=== PATIENT | female | born 1980 | race Caucasian/White ===

== ENCOUNTER 2017-03-27 13:15 | Emergency (ER) | payer OTHER ==
[~2017-03-27] VITALS: Ht 162.6 cm; Wt 99.5 kg
[~2017-03-27 13:15] MED LIST: BACTRIM,SEPT1 TABLET PO; CLINDAMYCIN HC300 MG PO; DIABETA1.25 MG PO; DIFLUCAN150 MG PO; ENDOCET 5-3251 EACH PO; IBUPROFEN800 MG PO; MICRONASE1.25 MG PO; Motrin PO; PREFERA-OB P1 TABLET PO; Percocet 5/325,Endoc PO
[2017-03-27] MEDS ORDERED: TAPAZOLE10 MG PO (13:32)
[2017-03-27] MEDS ORDERED: PAXIL10 MG PO (13:32)
[2017-03-27 13:43] LABS: ADD MIUA? YES; BILIRUBIN NEGATIVE; BLOOD SMALL; COLOR AMBER ((YELLOW)); GLUCOSE (STRIP) NEGATIVE; KETONES NEGATIVE; LEUKOCYTES LARGE; NITRITE NEGATIVE; PROTEIN (STRIP) 100; UROBILINOGEN 0.2 MG/DL (0.2-1.0)
[2017-03-27 14:02] LABS: BACTERIA NONE SEEN /HPF; EPITHELIAL CELLS 1+ /HPF; HYALINE CASTS 0-5 /LPF; MUCUS 1+ /LPF; RED BLOOD CELLS 0-5 /HPF (0-5); UCUL ADDED? NO; WHITE BLOOD CELLS 0-5 /HPF (0-5)
[2017-03-27 14:25] LABS: HEMATOCRIT 39.3 % (36.0-46.0); MCH 28.8 PG (29.0-34.0); MCHC 33.8 G/DL (30.0-36.0); MCV 85.1 FL (83-99); MEAN PLAT.VOLUME 9.7 uM^3 (9.5-12.4); PLATELET COUNT 310 K/uL (156-360); RBC DIS.WIDTH-CV 12.7 % (11.8-14.6); RBC DIS.WIDTH-SD 38.9 % (39-53); RED BLOOD COUNT 4.62 M/uL (3.80-5.20)
[2017-03-27 14:35] LABS: CHLORIDE 111 mEq/L (99-109); SODIUM 141 mEq/L (136-147)
[2017-03-27 14:38] LABS: GLUCOSE 97 mg/dL (70-99)
[2017-03-27 14:39] LABS: ANION GAP 8 MEQ/L (2-14)
[2017-03-27 14:40] LABS: TOTAL BILIRUBIN 1.1 mg/dL (0.0-1.0)
[2017-03-27 14:41] LABS: ALKALINE PHOSPHATASE 105 IU/L (3-129); GFR ESTIMATE (CALCULATED) > 59 mL/min/
[2017-03-27 14:42] LABS: UREA NITROGEN (BUN) 13 mg/dL (9-23)
[2017-03-27 14:50] LABS: QUANTITATIVE HCG < 4.0 MIU/ML
[2017-03-27] MEDS ORDERED: MOTRIN800 MG PO (15:46)
[2017-03-27] MEDS ORDERED: KEFLEX500 MG PO (15:46)
[2017-03-27] MEDS ORDERED: ZOFRAN ODT4 MG PO (15:55)
[2017-03-27 16:06] VITALS: BP 138/97
== END 2017-03-27 16:07 | disposition home or self-care (01) ==
LOC: RME 13:15 → EME 13:15 → RME 16:07
PROVIDERS: Nurse Practitioner Family
DX: N30.90 Cystitis, unspecified without hematuria (principal); N20.0 Calculus of kidney; Z87.442 Personal history of urinary calculi; Z88.1 Allergy status to other antibiotic agents; Z88.8 Allergy status to other drugs, medicaments and biological substances
CPT/HCPCS: 74176; 80053; 81003; 84702; 85027; 99281; 99285; J1885; J2405; J7030

== ENCOUNTER 2017-05-18 21:19 | Emergency (ER) | payer OTHER ==
[~2017-05-18] VITALS: Ht 160 cm; Wt 103.6 kg
[~2017-05-18 21:19] MED LIST changes: +KEFLEX500 MG PO; +MOTRIN800 MG PO; +PAXIL10 MG PO; +TAPAZOLE10 MG PO; +ZOFRAN ODT4 MG PO
[2017-05-18 22:29] LABS: BASOPHIL COUNT 0.1 K/uL (0-0.1); EOSINOPHIL (%) 0.8 % (0-5); EOSINOPHIL COUNT 0.1 K/uL (0-0.3); IMMATURE GRANULOCYTE (%) 0.4 % (0.0-0.7); INSTRUMENT ABS NEUTROPHIL CT 3.2 K/uL; LYMPHOCYTE COUNT 3.5 K/uL (1.0-2.8); MCH 29.3 PG (29.0-34.0); MCHC 34.6 G/DL (30.0-36.0); MCV 84.8 FL (83-99); MEAN PLAT.VOLUME 9.8 uM^3 (9.5-12.4); MONOCYTE (%) 6.4 % (3-12); MONOCYTE COUNT 0.5 K/uL (0-0.8); NEUTROPHIL (%) 43.8 % (45-76); NEUTROPHIL COUNT 3.2 K/uL (1.8-6.4); PLATELET COUNT 337 K/uL (156-360); RBC DIS.WIDTH-CV 12.3 % (11.8-14.6); RBC DIS.WIDTH-SD 37.7 % (39-53); WHITE BLOOD COUNT 7.4 K/uL (4.1-10.2)
[2017-05-18 22:39] LABS: CHLORIDE 107 mEq/L (99-109); SODIUM 138 mEq/L (136-147)
[2017-05-18 22:42] LABS: GLUCOSE 101 mg/dL (70-99)
[2017-05-18 22:43] LABS: ANION GAP 9 MEQ/L (2-14); TOTAL BILIRUBIN 0.9 mg/dL (0.0-1.0)
[2017-05-18 22:45] LABS: ALKALINE PHOSPHATASE 107 IU/L (3-129); GFR ESTIMATE (CALCULATED) > 59 mL/min/
[2017-05-18 22:46] LABS: UREA NITROGEN (BUN) 12 mg/dL (9-23)
[2017-05-18 22:47] LABS: DIRECT BILIRUBIN 0.3 mg/dL (0.0-0.3)
[2017-05-18 22:54] LABS: QUANTITATIVE HCG < 4.0 MIU/ML
[2017-05-18 22:59] VITALS: BP 146/86
[2017-05-19 11:25] LABS: AHBS INDEX 397.74; HIV-1/2 AB/AG COMBO Nonreactive
[2017-05-19 11:30] LABS: HEPATITIS B SURFACE ANTIBODY REACTIVE
== END 2017-05-18 23:01 | disposition home or self-care (01) ==
LOC: EME 21:19 → RME 21:19
PROVIDERS: Nurse Practitioner Family
DX: Z77.21 Contact with and (suspected) exposure to potentially hazardous body fluids (principal); Z87.442 Personal history of urinary calculi
CPT/HCPCS: 80048; 80076; 84702; 85025; 86703; 86706; 86803; 99281; 99284

== ENCOUNTER 2017-12-12 03:34 | Emergency (ER) | payer OTHER ==
[~2017-12-12] VITALS: Ht 162.6 cm; Wt 102.3 kg
[2017-12-12] MEDS ORDERED: DIFLUCAN150 MG PO (05:13)
[2017-12-12] MEDS ORDERED: CLEOCIN300 MG PO (05:13)
[2017-12-12] MEDS ORDERED: PERCOCET 5/31 TABLET PO (05:13)
[2017-12-12 05:46] VITALS: BP 153/98
== END 2017-12-12 06:08 | disposition home or self-care (01) ==
LOC: EME 03:34
PROC: 0H98XZZ Drainage of Buttock Skin, External Approach (ICD-10-PCS; principal; 2017-12-12)
DX: L02.31 Cutaneous abscess of buttock (principal); L03.317 Cellulitis of buttock; B95.62 Methicillin resistant Staphylococcus aureus infection as the cause of diseases classified elsewhere; F32.9 Major depressive disorder, single episode, unspecified; Z86.14 Personal history of Methicillin resistant Staphylococcus aureus infection; Z87.442 Personal history of urinary calculi; Z88.1 Allergy status to other antibiotic agents; Z88.8 Allergy status to other drugs, medicaments and biological substances
CPT/HCPCS: 87070; 87075; 87077; 87147; 87186; 87205; 99281; 99284

== ENCOUNTER 2018-02-25 07:37 | Emergency (ER) | payer OTHER ==
[~2018-02-25] VITALS: Ht 160 cm; Wt 100.9 kg
[~2018-02-25 07:37] MED LIST changes: +CLEOCIN300 MG PO; +PERCOCET 5/31 TABLET PO
[2018-02-25 08:13] LABS: HEMATOCRIT 38.9 % (36.0-46.0); HEMOGLOBIN 13.8 G/DL (11.9-15.5); MCH 29.7 PG (29.0-34.0); MCHC 35.5 G/DL (30.0-36.0); MCV 83.7 FL (83-99); PLATELET COUNT 309 K/uL (156-360); RBC DIS.WIDTH-CV 12.9 % (11.8-14.6); RBC DIS.WIDTH-SD 39.1 % (39-53); RED BLOOD COUNT 4.65 M/uL (3.80-5.20); WHITE BLOOD COUNT 6.9 K/uL (4.1-10.2)
[2018-02-25 08:24] LABS: CHLORIDE 112 mEq/L (99-109); POTASSIUM 3.7 mEq/L (3.7-5.4); SODIUM 142 mEq/L (136-147)
[2018-02-25 08:26] LABS: GLUCOSE 103 mg/dL (70-99); TOTAL PROTEIN 6.9 g/dL (6.4-8.3)
[2018-02-25 08:28] LABS: TOTAL BILIRUBIN 1.6 mg/dL (0.0-1.0)
[2018-02-25 08:29] LABS: ALKALINE PHOSPHATASE 102 IU/L (3-129)
[2018-02-25 08:30] LABS: CREATININE 0.7 mg/dL (0.6-1.3); GFR ESTIMATE (CALCULATED) > 59 mL/min/
[2018-02-25 08:31] LABS: AST (GOT) 20 IU/L (2-34); UREA NITROGEN (BUN) 11 mg/dL (9-23)
[2018-02-25 08:33] LABS: ALT (GPT) 27 IU/L (3-49)
[2018-02-25 08:39] LABS: QUANTITATIVE HCG < 4.0 MIU/ML
[2018-02-25 08:48] LABS: DIRECT BILIRUBIN 0.6 mg/dL (0.0-0.3)
[2018-02-25 08:52] LABS: APPEARANCE SL.HAZY ((CLEAR)); BILIRUBIN NEGATIVE; BLOOD SMALL; COLOR YELLOW ((YELLOW)); GLUCOSE (STRIP) NEGATIVE; KETONES NEGATIVE; LEUKOCYTES LARGE; NITRITE NEGATIVE; PROTEIN (STRIP) NEGATIVE; UROBILINOGEN 0.2 MG/DL (0.2-1.0)
[2018-02-25 08:59] LABS: BACTERIA 1+ /HPF; EPITHELIAL CELLS RARE /HPF; MUCUS TRACE /LPF; RED BLOOD CELLS 0-5 /HPF (0-5); UCUL ADDED? YES; WHITE BLOOD CELLS 30-40 /HPF (0-5)
[2018-02-25] MEDS ORDERED: ZOFRAN ODT4 MG PO (10:36)
[2018-02-25] MEDS ORDERED: KEFLEX500 MG PO (10:36)
[2018-02-25 11:23] VITALS: BP 112/77
== END 2018-02-25 11:26 | disposition home or self-care (01) ==
LOC: EME 07:37
DX: N39.0 Urinary tract infection, site not specified (principal); R11.2 Nausea with vomiting, unspecified; Z87.442 Personal history of urinary calculi; F32.9 Major depressive disorder, single episode, unspecified; E05.00 Thyrotoxicosis with diffuse goiter without thyrotoxic crisis or storm; Z86.14 Personal history of Methicillin resistant Staphylococcus aureus infection; Z88.1 Allergy status to other antibiotic agents
CPT/HCPCS: 74018; 80053; 81003; 82248; 84702; 85027; 87086; 99281; 99285; J2405; J7030